=== PATIENT | female | born 1970 | race Caucasian/White ===

== ENCOUNTER → 2018-03-17 | Day surgery (SDC) | payer OTHER ==
--- NOTE | 2018-03-18 14:52 | PATH ---
Cytology Non-Gynecological Report Patient Name: DEREK YING [facility]. Rec. #: [id number] /Age/Gender: 1970 (Age: 47) / F Account: [id number] [facility] Taken: 03/17/2018 Received: 03/17/2018 Reported: 03/18/2018 Physicians: Jeremías Wilson M.D. Specimen(s) Received THYROID FNA RIGHT LOBE Clinical History Thyroid nodule Final Diagnosis THYROID, RIGHT, FINE NEEDLE ASPIRATION: SATISFACTORY FOR EVALUATION BETHESDA CLASS II: BENIGN CYTOLOGIC FINDINGS ARE CONSISTENT WITH A BENIGN FOLLICULAR NODULE. SMALL FOLLICULAR CELLS, NUMEROUS MACROPHAGES, AND COLLOID PRESENT. Electronically Signed Tucker Drake M.D. Gross Description Received are eight direct smears, four of which are air-dried and Diff-Quik stained, and four of which are alcohol fixed and Pap stained. Also received is 20 ml of bloody formalin from which one cellblock is prepared.
== END | disposition home or self-care (01) ==
LOC: JRADIR 08:02
PROVIDERS: ATTEND Radiology Diagnostic Radiology
PROC: 0G9H3ZX Drainage of Right Thyroid Gland Lobe, Percutaneous Approach, Diagnostic (ICD-10-PCS; principal; 2018-03-17)
DX: E04.1 Nontoxic single thyroid nodule (principal)
CPT/HCPCS: 76942; 88173; 88305-TC

== ENCOUNTER 2019-10-27 06:57 | Day surgery (SDC) | payer OTHER ==
[2019-10-26 08:59] VITALS: BMI 19.7
--- NOTE | 2019-10-26 20:15 | PREOP ---
DATE OF ADMISSION: 10/27/2019 DATE OF SURGERY: 10/27/2019 PREOPERATIVE DIAGNOSIS: Chronic ethmoid sinusitis and inferior turbinate hypertrophy. HISTORY OF PRESENT ILLNESS: This 49-year-old female has a long history of chronic nasal sinus polyps. She has undergone previous surgery years ago with improvement. Recently she has developed recurrent sinus symptoms and obstruction which have been refractory to appropriate medical therapy. She has been found to have chronic right ethmoid sinusitis as well as inferior turbinate hypertrophy and is now admitted for right endoscopic ethmoidectomy and submucous resection of the inferior turbinates under general anesthesia. PAST MEDICAL HISTORY: Primary medical doctor is Dr. Keeley Noe. She does have a history of hepatitis C, depression, COPD. ALLERGIES: She does have a reported allergy to BUPROPION. MEDICATIONS: Include alprazolam, azelastine spray, famotidine pills, gabapentin, hydroxyzine, nortriptyline and perphenazine. PAST SURGICAL HISTORY: Includes sinus surgery as above, ventral hernia surgery in 2018 and hysterectomy. There are no reported anesthesia problems. BLEEDING HISTORY: Negative. FAMILY HISTORY: Negative for bleeding and anesthesia problems. REVIEW OF SYSTEMS: The patient denies fever, visual change, throat pain, dyspnea, abdominal pain or leg pain. PHYSICAL EXAMINATION: General: The patient is a well-developed female in no distress. HEENT: Head is normal. Eyes are clear. Ears are unremarkable. The nose demonstrates inferior turbinate hypertrophy. There are changes related to previous sinus surgery. No polyps are present. Oral cavity and oropharynx are unremarkable. She had a CT scan of the paranasal sinuses performed at [facility] on August 24, 2019. It demonstrates surgical changes. There is right ethmoid sinus mucosal thickening. Inferior turbinates are enlarged with obstruction. PLAN: Right endoscopic ethmoidectomy, submucous resection of inferior turbinates under general anesthesia. INFORMED CONSENT: The patient understands the indications, alternatives, major risks and benefits of the proposed surgery. Potential complications include but are not limited to anesthesia, bleeding, infection, recurrence, numbness, reduced sense of smell, eye injury and brain injury, were discussed in detail. She understands and accepts these risks and wishes to proceed with surgery. Questions were answered fully. KHANH GOODRICH M.D. JANA/[id number]
[2019-10-27] MEDS ORDERED: LIDOCAINE 1%-EPI 1:100,000 30 ML MDV IJ ONE (09:40)
[2019-10-27] MEDS ORDERED: COCAINE HCL 4% TOPICAL SOLUTION 4 ML BOTTLE TP ONE ×2 (09:42→10:26)
--- NOTE | 2019-10-27 09:48 | HP ---
History & Physical Update - History History: No Change - Physical Physical: No Change - Assessment Assessment: No Change - Plan Plan: No Change
[2019-10-27] MEDS ORDERED: ROCURONIUM BROMIDE 50 MG/5 ML SYRINGE ONE (09:58)
[2019-10-27] MEDS ORDERED: MIDAZOLAM HCL 2 MG/2 ML SINGLE DOSE VIAL ONE ×2 (09:58)
[2019-10-27] MEDS ORDERED: fentaNYL CITRATE 250 MCG/5 ML VIAL ONE (09:58)
[2019-10-27] MEDS ORDERED: PROPOFOL 20 ML ONE (09:58)
[2019-10-27] MEDS ORDERED: LIDOCAINE 1%/EPI 1:100000 (20 ML MULTI DOSE VIAL) IJ ONE (10:31)
[2019-10-27] MEDS ORDERED: DEXAMETHASONE SOD PHOSPHATE 4 MG/1 ML VIAL ONE (10:38)
[2019-10-27] MEDS ORDERED: ePHEDrine SULFATE 50 MG/1 ML AMPULE ONE (10:59)
[2019-10-27] MEDS ORDERED: NEOSTIGMINE METHYLSULFATE 0.5 MG/ML - 10 ML MDV ONE (11:09)
[2019-10-27] MEDS ORDERED: BACITRACIN 15 GM TUBE TOPICAL OINTMENT TP ONE (11:25)
--- NOTE | 2019-10-27 11:49 | OP ---
Operative Note - Note: Operative Date: 10/27/19 ([id number]) Pre-Operative Diagnosis: chronic right ethmoid sinusitis, inferior turbinate hypertrophy Operation: right endoscopic ethmoidectomy, anterior/posterior, bilateral inferior turbinate submucus resection, image guidance Findings: right ethmoid sinusitis, inferior turbinate hypertrophy with obstruction Implants: none Post-Operative Diagnosis: Same as Pre-op Surgeon: Héctor Ewing Anesthesiologist/CHECK WRITER SALESPERSON: Angelito Redman Anesthesia: General Specimens Removed: right ethmoid tissue, inferior turbinate tissue (left and right) Estimated Blood Loss (mls): 10 Blood Volume Replaced (mls): 0 Operative Report Dictated: Yes
[2019-10-27] MEDS ORDERED: oxyCODONE HCL 5 MG TABLET PO PRN (11:50)
[2019-10-27] MEDS ORDERED: LACTATED RINGERS SOLUTION 1,000 ML IV SCH (12:00)
[2019-10-27 14:59] VITALS: BP 107/64; PULSE 56; TEMP 97.8
--- NOTE | 2019-10-28 11:54 | PATH ---
Surgical Pathology Report Patient Name: DEREK YING [facility]. Rec. #: [id number] /Age/Gender: 1970 (Age: 49) / F Account: [id number] Location: [facility] Taken: 10/27/2019 Received: 10/27/2019 Reported: 10/28/2019 Physicians: Héctor Ewing M.D. Specimen(s) Received A: RIGHT ETHMOID TISSUE B: INFERIOR TURBINATE TISSUE C: RIGHT TURBINATE TISSUE Clinical History Hypertrophy of nasal turbinates, chronic ethmoid sinusitis Final Diagnosis A. ETHMOID TISSUE, RIGHT, ETHMOIDECTOMY: BENIGN RESPIRATORY MUCOSA WITH CHRONIC SINUSITIS AND BONE. B. INFERIOR TURBINATE TISSUE, TURBINATE REDUCTION: BENIGN RESPIRATORY MUCOSA AND BONE. C. TURBINATE TISSUE, RIGHT, TURBINATE REDUCTION: BENIGN RESPIRATORY MUCOSA. Electronically Signed Kenia Chavarria M.D. Gross Description A. Received in formalin labeled "right ethmoid tissue," is a 1.4 x 1.0 x 0.2 cm aggregate of malloy-pink soft tissue, cartilage and possible bone fragments. The formalin is filtered and the specimen is entirely submitted in one cassette, following decalcification. B. Received in formalin labeled "inferior turbinate tissue," is a 1.0 x 0.7 x 0.2 cm aggregate of malloy-pink soft tissue, cartilage and possible bone fragments. The formalin is filtered and the specimen is entirely submitted in one cassette, following decalcification. C. Received in formalin labeled "right turbinate tissue," is a 1.0 x 0.8 x 0.2 cm aggregate of malloy-pink soft tissue, cartilage and possible bone fragments. The formalin is filtered and the specimen is entirely submitted in one cassette, following decalcification. DL/10/27/2019 saudi/10/27/2019
--- NOTE | 2019-10-28 12:31 | OP ---
DATE OF OPERATION: 10/27/2019 PREOPERATIVE DIAGNOSES: Chronic right ethmoid sinusitis, inferior turbinate hypertrophy. POSTOPERATIVE DIAGNOSES: Chronic right ethmoid sinusitis, inferior turbinate hypertrophy. PROCEDURE: Right endoscopic ethmoidectomy, anterior/posterior; image guidance; bilateral submucosal resection of inferior turbinates. SURGEON: Khanh Ewing MD ANESTHESIOLOGIST: Santy Redman MD ANESTHESIA: General via endotracheal tube. INDICATIONS: This 49-year-old female has a history of chronic sinusitis. She has undergone prior sinus surgery. She did well but has had recent recurrence of some symptoms which have failed to improve with appropriate medical therapy. Examination demonstrates inferior turbinate hypertrophy, no pus or polyps. CT scan demonstrates sinusitis in the right ethmoid sinus. Otherwise, the remaining sinuses are clear. Inferior turbinate hypertrophy was present. She is not brought to surgery for treatment. FINDINGS: Chronic right ethmoid sinusitis, inferior turbinate hypertrophy. PROCEDURE: Patient was brought to the operating room and placed on the operating table in supine position. General endotracheal anesthesia was induced to a satisfactory level. She was prepped and draped in the usual fashion for surgery. The nose was prepped with cocaine 4% pledgets. Her CT scan data was uploaded to the [employer] Image Guidance System. The patient was registered, and the system was used intermittently throughout the case to identify anatomic position and guide dissection. The pledgets were removed. Nasal endoscopy was performed with a 0-degree telescope. Inferior turbinate hypertrophy was seen. Evidence of prior sinus surgery was evident with partially resected middle turbinates. Ethmoid edge were more open on the left side than the right. Sphenoid, ostia, and maxillary antrostomies were patent, and there was no pus or polyp. Using the image guidance system, the areas of opacification of the right ethmoid sinus were localized, and the anterior end of the middle turbinate remnant, as well as the roof and lateral wall, were injected with lidocaine with epinephrine 1:100,000. A small synechia was present. Additional cocaine 4% was packed. The pledget was removed. The area of synechia was transected with the curved endoscopic scissors. Access to the opacified cells were then achieved. Upbiting ethmoid forceps were then used to open the cells. Diseased tissue was removed. No polyps were present. The lamina papyracea and the fovea ethmoidalis were preserved. Again, the area of disease was confirmed to be entered and addressed with image guidance. Attention was then turned toward the inferior turbinates. Each was injected with lidocaine 1% with epinephrine 1:100,000. After adequate time for vasoconstriction, the left inferior turbinate was incised with a 15 blade. The soft tissue was elevated. The bone was isolated and removed with straight forceps. The remaining tissue was then cauterized intramurally with the suction cautery. The incision was closed. Additional spot mural cauterization was also performed. Significant improvement in the airway was achieved. Attention was then turned toward the right inferior turbinate. It was incised anteriorly with a 15 blade. Turbinate bone was identified and soft tissue elevated from it. Submucosal resection of the turbinate bone was performed. Submucosal cauterization was performed as well as some mural cauterization. The incision was closed with 4-0 plain suture. Final inspection demonstrated excellent hemostasis and markedly improved airways. Because of the dryness of the ethmoid bed, no packing was performed in the ethmoid. Folded Telfa gauze coated with bacitracin and joined with a silk suture anteriorly were placed inferiorly against the inferior turbinates and the incisions. Mustache dressing was placed. Patient tolerated the procedure well. She was then awakened from general anesthesia and transferred to the PACU in stable condition. Estimated blood loss was 10 mL. She received crystalloid during the procedure. Specimens included right ethmoid tissue and inferior turbinate tissue, right and left, which was sent to Pathology for routine studies. There were no complications. KHANH EWING M.D. JANA/[id number]
== END 2019-10-27 14:30 | disposition home or self-care (01) ==
LOC: JASU-SURG 06:57
PROVIDERS: ATTEND Otolaryngology
PROC: 09TL8ZZ Resection of Nasal Turbinate, Via Natural or Artificial Opening Endoscopic (ICD-10-PCS; 2019-10-27)
PROC: 8E09XBZ Computer Assisted Procedure of Head and Neck Region (ICD-10-PCS; 2019-10-27)
PROC: 8E09XBZ Computer Assisted Procedure of Head and Neck Region (ICD-10-PCS; principal; 2019-10-27 09:30)
DX: J32.2 Chronic ethmoidal sinusitis (principal); J34.3 Hypertrophy of nasal turbinates
CPT/HCPCS: 94760

== ENCOUNTER → 2021-06-22 | Day surgery (SDC) | payer OTHER ==
[2021-06-19 11:01] VITALS: BMI 21.4
[~2021-06-22] MED LIST: BUPIVACAINE HCL/EPINEPHRINE/PF 30 ML VIAL IJ ONE; BUPIVACAINE HCL/PF 0.25% (2.5MG/ML) 10 ML VIAL IJ ONE; BUPIVACAINE HCL/PF 0.25% (2.5MG/ML) 10 ML VIAL ONE; DEXAMETHASONE SOD PHOSPHATE 4 MG/1 ML VIAL ONE; KETOROLAC TROMETHAMINE 30 MG/1 ML VIAL ONE; LIDOCAINE HCL 2% JELLY (5 ML/TUBE) ONE; LIDOCAINE HCL/PF 2% SDV 5ML VIAL ONE; MIDAZOLAM HCL 2 MG/2 ML SINGLE DOSE VIAL ONE; ONDANSETRON 4 MG/2 ML VIAL IVPUSH PRN; ONDANSETRON 4 MG/2 ML VIAL ONE; PROMETHAZINE HCL 25 MG/1 ML VIAL IVPUSH PRN; PROPOFOL 20 ML ONE; SUCCINYLCHOLINE CHLORIDE 200 MG/10 ML SYRINGE ONE; ceFAZolin SODIUM 1 GM VIAL IVPB ONE; ceFAZolin SODIUM 1 GM VIAL ONE; ePHEDrine SULFATE 50 MG/1 ML AMPULE ONE; oxyCODONE HCL 5 MG TABLET PO PRN
[2021-06-22 12:36] VITALS: BP 115/75; PULSE 74
[2021-06-22 12:43] VITALS: TEMP 98
== END | disposition home or self-care (01) ==
LOC: FASU 07:22
PROVIDERS: ATTEND Orthopaedic Surgery
PROC: 0SBD4ZZ Excision of Left Knee Joint, Percutaneous Endoscopic Approach (ICD-10-PCS; principal; 2021-06-22 10:37)
DX: M22.42 Chondromalacia patellae, left knee (principal); M65.9 Synovitis and tenosynovitis, unspecified
CPT/HCPCS: 94760